=== PATIENT | male | born 1955 | race African-American/Black ===

== ENCOUNTER 2019-09-10 16:11 | Inpatient (IN) | payer OTHER ==
--- NOTE | 2019-09-10 16:45 | ER Document Report ---
ED Medical Screen (RME) - General Chief Complaint: Blood Pressure Problem Stated Complaint: BLOOD PRESSURE CONCERNS Time Seen by Provider: 09/10/19 16:35 Mode of Arrival: Ambulatory Information source: Patient Notes: 64-year-old male presented to ED for complaint of elevated blood pressure at home. He states he took his blood pressure with his machine at home and is said 235/? . He states it was so he was concerned and came to the emergency room. He stated the reason he took his blood pressure was because he had a headache on the left side of his head. He is not having any confusion dizziness change in orientation or change in mentation. When I checked his blood pressure in the emergency room his blood pressure is 210/100. He states he has not been taking his blood pressure medicine because it was only 10 mg of something but is not sure what. He states he figured that was enough that he really needed it. Patient states he usually drinks about 12 beers a day but he has not had any today. He states he sometimes gets medication at [facility] but they have not filled anything for him for over a year. I have greeted and performed a rapid initial assessment of this patient. A comprehensive ED assessment and evaluation of the patient, analysis of test results and completion of medical decision making process will be conducted by an additional ED providers. - Related Data Allergies/Adverse Reactions: No Known Allergies Allergy (Verified 09/10/19 16:35) Physical Exam - Vital signs Vitals: Temp Pulse Resp BP Pulse Ox 98.4 F 96 18 185/85 H 100 09/10/19 16:21 09/10/19 16:21 09/10/19 16:21 09/10/19 16:21 09/10/19 16:21 Course - Vital Signs Vital signs: Temp Pulse Resp BP Pulse Ox 98.4 F 96 18 185/85 H 100 09/10/19 16:21 09/10/19 16:21 09/10/19 16:21 09/10/19 16:21 09/10/19 16:21
[2019-09-10 17:18] LABS: ABSOLUTE EOSINOPHILS # (AUTO) 0.1 10^3/uL (0.0-0.6); ABSOLUTE MONOCYTES (AUTO) 0.5 10^3/uL (0.1-1.4); ABSOLUTE NEUT (AUTO) 3.3 10^3/uL (1.7-8.2); BASOPHILS % (AUTO) 0.5 % (0-2); HEMATOCRIT 41.3 % (37.9-51.0); HEMOGLOBIN 14.3 g/dL (13.5-17.0); LYMPHOCYTES % (AUTO) 21.1 % (13-45); MEAN CORPUSCULAR HEMOGLOBIN 31.5 pg (27.0-33.4); MEAN CORPUSCULAR HGB CONC 34.6 g/dL (32.0-36.0); MEAN CORPUSCULAR VOLUME 91 fl (80-97); MONOCYTES % (AUTO) 9.4 % (3-13); PLATELET COUNT 289 10^3/uL (150-450); RED BLOOD COUNT 4.54 10^6/uL (4.35-5.55); RED CELL DISTRIBUTION WIDTH 12.1 % (11.5-14.0); TOTAL CELLS COUNTED % (AUTO) 100 %; WHITE BLOOD COUNT 4.8 10^3/uL (4.0-10.5)
[2019-09-10 17:38] LABS: ALBUMIN 4.8 g/dL (3.5-5.0); ALCOHOL < 10 mg/dL (NONE DETECTED); ALKALINE PHOSPHATASE 72 U/L (38-126); ANION GAP 14 (5-19); ASPARTATE AMINO TRANSFERASE 30 U/L (17-59); BILIRUBIN,DIRECT 0.2 mg/dL (0.0-0.4); BILIRUBIN,TOTAL 0.7 mg/dL (0.2-1.3); BLOOD UREA NITROGEN 14 mg/dL (7-20); CALCIUM 10.2 mg/dL (8.4-10.2); CARBON DIOXIDE 23 mmol/L (22-30); CHLORIDE 97 mmol/L (98-107); GLUCOSE 137 mg/dL (75-110); POTASSIUM 3.9 mmol/L (3.6-5.0)
--- NOTE | 2019-09-10 17:46 | ER Document Report ---
ED General - General Mode of Arrival: Ambulatory TRAVEL OUTSIDE OF THE [place] IN LAST 30 DAYS: No - Related Data Home Medications: unknown blood pressure medication <SOFIA LANDIN - Last Filed: 09/10/19 19:20> <AMBAR MAN - Last Filed: 09/11/19 12:01> - General Chief Complaint: Blood Pressure Problem Stated Complaint: BLOOD PRESSURE CONCERNS Time Seen by Provider: 09/10/19 16:35 Notes: Very pleasant 64-year-old male with essential hypertension presents to the emergency department with chief complaint of elevated blood pressure. Patient states that he was at home this morning when he had a brief headache and decided to check his blood pressure. He initially checked it and the systolic read 235 but then realized it was improperly placed so he rechecked it and it was triple over triple. Patient was concerned and thus came to the ER. Patient denies any current headache, denies confusion, denies any chest pain or shortness of breath, denies nausea, denies diaphoresis, denies any anuria. (SOFIA LANDIN) - Related Data Allergies/Adverse Reactions: No Known Allergies Allergy (Verified 09/10/19 16:35) Past Medical History - General Information source: Patient - Social History Smoking Status: Never Smoker Chew tobacco use (# tins/day): No Frequency of alcohol use: Heavy Patient has suicidal ideation: No Patient has homicidal ideation: No <SOFIA LANDIN - Last Filed: 09/10/19 19:20> - Social History Lives with: Family Family History: None <AMBAR MAN - Last Filed: 09/11/19 12:01> Review of Systems - Review of Systems Constitutional: See HPI EENT: See HPI Cardiovascular: See HPI Respiratory: No symptoms reported Gastrointestinal: No symptoms reported Genitourinary: No symptoms reported Male Genitourinary: No symptoms reported Musculoskeletal: No symptoms reported Skin: No symptoms reported Hematologic/Lymphatic: No symptoms reported Neurological/Psychological: See HPI <SOFIA LANDIN - Last Filed: 09/10/19 19:20> Physical Exam <SOFIA LANDIN - Last Filed: 09/10/19 19:20> - Vital signs Vitals: BP 117/75 09/10/19 12:18 - Notes Notes: PHYSICAL EXAMINATION: Reviewed vital signs and charting by RN GENERAL: Alert, interacts well. No acute distress. HEAD: Normocephalic, atraumatic. EYES: Pupils equal and round. Extraocular movements intact. ENT: Oral mucosa moist, tongue midline. NECK: Full range of motion. Trachea midline. LUNGS: Clear to auscultation bilaterally, no wheezes, rales, or rhonchi. No respiratory distress. HEART: Regular rate and rhythm. No murmur ABDOMEN: soft, non-tender. No distention. Bowel sounds present EXTREMITIES: Moves all 4 extremities spontaneously. No edema, No cyanosis. NEURO: A &O X 3, normal speech, normal gait, PERRL, EOMI, SILT, follows comma nds in all 4 extremities, no gross abnormalities of cranial nerves, no focal neuro deficits, no pronator drift, [id number] testing normal, rapid alternating hand movements normal, [id number] normal, stranding machine operator helper strength 5/5 bilateral, 5/5 strength in both proximal and distal upper and lower extremities PSYCH: Normal affect, normal mood. SKIN: Warm, dry, normal turgor. No rashes or lesions noted. (SOFIA LANDIN) Course - Laboratory Result Diagrams: 09/10/19 17:10 09/10/19 17:10 <SOFIA LANDIN - Last Filed: 09/10/19 19:20> - Laboratory Result Diagrams: 09/11/19 03:54 09/11/19 06:16 - Consults dr tilley Time consulted: 21:06 Consulted provider: other <AMBAR MAN - Last Filed: 09/11/19 12:01> - Re-evaluation Re-evalutation: 09/10/19 17:47 Very well-appearing in no acute distress. I did an EKG and troponin to labs ordered in triage. Serum alcohol was ordered and is pending. Patient denies any symptoms at this time. Normal neurologic exam. There is no evidence of any hypertensive emergency pending EKG and troponin. Patient is urinating. 09/10/19 18:25 Troponin was 0.020, indeterminate. Briefly discussed with attending physician and recommendation is to get a delta troponin to ensure that it is not uptrending. Serum alcohol less than 10. 09/10/19 19:21 Patient signed out to Pema Man NP. (SOFIA LANDIN) 09/10/19 19:00 Received report from Sofia DRAKE. Patient resting quietly with his at the bedside. He denies headache. Denies chest pain. Reports he has a history of high blood pressure but he was not taking his medications as prescribed. He reports he really did not think he needed them as prescribed. Patient was instructed that we are waiting for a second troponin. We will repeat second EKG also. 09/10/19 21:06 Second troponin [address] Alvarado who advises baby aspirin and admission. Contacted Dr. Tilley who requested to give him clonidine 0.2 mg if heart rate remains over 90 and Norvasc 10 mg reassess in 1 hour. patient and updated on plan of care. He requested Dr. Alvarado to assess patient. Patient denies chest pain. Denies headache. Patient reports he feels fine. 09/10/19 23:04 Patient received aspirin and Norvasc. He did not receive the clonidine because a heart rate was under 90. Patient reassessed blood pressure is decreased. He still denies chest pain. Denies shortness of breath and reports he feels fine no headache. Consulted Dr. Alvarado to come in and assess the patient per Dr Reyes request before I called Dr. Tilley back. Dr. Alvarado did go and assess patient and still advises admission. I contacted Dr. Tilley. He reports that I should contact Dr. Pavon. Dr. Huitron was contacted. He reviewed patient's chart, EKG and labs. He reports the patient does not need admission he can be sent home on metoprolol XL 25 mg in addition to his amlodipine. He also reports patient should follow-up with his primary care provider. I instructed Dr. alvarado about this. He contacted Dr. Pavon. Dr. Alvarado has taken over care of the patient. Patient is aware of Dr. Alvarado assuming care. (AMBAR MAN) - Vital Signs Vital signs: Temp Pulse Resp BP Pulse Ox 99.1 F 87 17 141/95 H 100 09/11/19 11:03 09/11/19 11:03 09/11/19 11:03 09/11/19 11:03 09/11/19 11:03 - Laboratory Laboratory results interpreted by me: 09/10/19 09/10/19 17:10 18:12 Sodium 133.6 L Chloride 97 L Glucose 137 H Urine Ketones TRACE H Discharge <SOFIA LANDIN - Last Filed: 09/10/19 19:20> <AMBAR MAN - Last Filed: 09/11/19 12:01> - Discharge Clinical Impression: Hypertensive urgency Condition: Fair Disposition: ADMITTED OBSERVATION
[2019-09-10 18:33] LABS: APPEARANCE,URINE CLEAR; BILIRUBIN,URINE NEGATIVE (NEGATIVE); COLOR,URINE YELLOW; GLUCOSE, URINE NEGATIVE (NEGATIVE); KETONES,URINE TRACE mg/dL (NEGATIVE); PROTEIN,URINE NEGATIVE (NEGATIVE); URINE SPECIFIC GRAVITY 1.009; UROBILINOGEN,URINE NEGATIVE mg/dL (<2.0)
[2019-09-10] MEDS ORDERED: CLONIDINE HCL 0.2 MG TABLET PO ONE (21:07)
[2019-09-10] MEDS ORDERED: AMLODIPINE BESYLATE 10 MG TABLET PO ONE (21:07)
[2019-09-10] MEDS ORDERED: ASPIRIN 81 MG TABLET, CHEWABLE PO ONE (21:14)
--- NOTE | 2019-09-10 23:05 | EKG REPORT ---
SEVERITY:- ABNORMAL ECG - SINUS RHYTHM NONSPECIFIC REPOL ABNORMALITY, DIFFUSE LEADS : Confirmed by: Austyn Iqbal MD 10-Sep-2019 23:05:04
--- NOTE | 2019-09-10 23:07 | EKG REPORT ---
SEVERITY:- ABNORMAL ECG - SINUS RHYTHM VENTRICULAR PREMATURE COMPLEX LVH WITH SECONDARY REPOLARIZATION ABNORMALITY BORDERLINE PROLONGED QT INTERVAL : Confirmed by: Austyn Iqbal MD 10-Sep-2019 23:06:23
[2019-09-11] MEDS ORDERED: NICARDIPINE HCL RTU, ISO-OS 20 MG/200 ML RTUINJ IV PRN ×2 (00:16→02:49)
--- NOTE | 2019-09-11 00:24 | ER Document Report ---
Doctor's Note Notes: 09/11/19 00:22 Patient's blood pressure has gone back up to 204/119. This MD started a Cardene drip at 2.5/h with a goal to reduce that M AP by 20 to 25% over the first hour. This MD discussed case with the loading machine tool setter who accepted the patient for admission.
[2019-09-11] MEDS ORDERED: ACETAMINOPHEN 325 MG TABLET PO PRN (00:33)
[2019-09-11] MEDS ORDERED: HYDRALAZINE HCL INJ/PF 20 MG/1 ML SDV IV PRN (00:45)
[2019-09-11] MEDS ORDERED: LABETALOL HCL INJ 20 MG/4 ML DISP.SYRIN IV PRN (00:46)
[2019-09-11] MEDS ORDERED: LORAZEPAM INJ 2 MG/1 ML VIAL IV PRN (00:49)
--- NOTE | 2019-09-11 01:21 | CRITICAL CARE ADMISSION REPORT ---
HPI Date:: 09/11/19 Time:: 01:09 Reason for ICU Reason:: Hypertensive urgency HPI: Pt is a 64 yo man with HTN and alcohol abuse who presented to the ED after having a ROBLES at home and discovering that his SBP was 235. He reports that he stopped taking his norvasc 5 months ago b/c he didn't feel like he needed it. He also reports drinking 12 beers daily. In the ED he was given norvasc and clonidine. They were unable to lower his BP with oral agents and he was started on a Cardene drip. He denies any fever, chills, N/V, CP, SOA, difficulty walking, or problems with his bladder/bowels. - Diagnosis/Plan (1) Hypertensive urgency Is this a current diagnosis for this admission?: Yes (2) Alcohol abuse Is this a current diagnosis for this admission?: Yes (3) Nonadherence to medication Is this a current diagnosis for this admission?: Yes Past Medical History Cardiac Medical History: Reports: Hypertension Social/Family History - Social History Smoking Status: Never Smoker Frequency of Alcohol Use: Heavy - reports drinking 12 beers daily - Medication/Allergies Allergies/Adverse Reactions: No Known Allergies Allergy (Verified 09/10/19 16:35) Review of Systems Review of Systems: per HPI. Physical Exam Vital Signs: Temp Pulse Resp BP Pulse Ox 98.4 F 96 20 178/88 H 96 09/10/19 16:21 09/10/19 16:21 09/11/19 01:00 09/11/19 01:01 09/11/19 01:00 Intake & Output 09/09/19 09/10/19 09/11/19 06:59 06:59 06:59 Weight 109.1 kg Weight/Height Weight 109.1 kg Height 6 ft 2 in General appearance: PRESENT: no acute distress, well-developed, well-nourished Neck exam: PRESENT: other - no JVD Respiratory exam: PRESENT: clear to auscultation komal, unlabored Cardiovascular exam: PRESENT: RRR, other - no mrg GI/Abdominal exam: PRESENT: soft, other - non-tender, non-distended Extremities exam: PRESENT: other - no edema Musculoskeletal exam: PRESENT: normal inspection Neurological exam: PRESENT: alert, awake, CN II-XII grossly intact, other - non- focal exam. normal strength and sensation Psychiatric exam: PRESENT: appropriate affect Laboratory/Radiographs Laboratory Results: 09/10/19 17:10 09/10/19 17:10 09/10/19 09/10/19 09/10/19 17:10 17:10 18:12 WBC 4.8 RBC 4.54 Hgb 14.3 Hct 41.3 MCV 91 MCH 31.5 MCHC 34.6 RDW 12.1 Plt Count 289 Seg Neutrophils % 68.0 Sodium 133.6 L Potassium 3.9 Chloride 97 L Carbon Dioxide 23 Anion Gap 14 BUN 14 Creatinine 1.02 Est GFR ( Amer) > 60 Glucose 137 H Calcium 10.2 Total Bilirubin 0.7 AST 30 Alkaline Phosphatase 72 Total Protein 8.0 Albumin 4.8 Lipase 83.2 Urine Color YELLOW Urine Appearance CLEAR Urine pH 6.0 Ur Specific [place] 1.009 Urine Protein NEGATIVE Urine Glucose (UA) NEGATIVE Urine Ketones TRACE H Urine Blood NEGATIVE Urine RBC (Auto) 0 09/10/19 09/10/19 09/10/19 17:10 20:10 23:09 Troponin I 0.020 0.030 0.032 Critical Time Critical Time (minutes): 40 -: The care of a critically ill patient is dynamic. This note represents a static moment in the admission process. orders and treatments may be given simu lataneously and urgentl, and time is not security systems sales representative of the treatment process. This patient requires Critical Care secondary to life threating organ or limb dysfunction. Without the need for Critical Care services, the patient is at risk for increasid mortality and morbidity. Provider Note Provider Note: Assessment: 64 yo man with hypertenisve urgency due to non-compliance with medication regimen, alcohol abuse. Plan: 1. Respiratory: stable on room air 2. CV: hypertensive urgency. Continue cardene. Resume home norvac 10mg daily. Toprol XL [address] Huitron's recs per the ED note. EKG and troponins, reviewed. Echo ordered. Prn labetalol and hydralazine. 3. Psych/Social: ETOH abuse. Pt reports drinking 12 beers daily. CIWA scale. prn ativan. MVI/folic acid/thiamine. UDS. 4. Neuro: headache due to uncontrolled HTN. Will check head CT 5. Diet: cardiac diet 6. Prophylaxis: scds, lovenox 7. Pt counseled on the importance of medication adherence, heart healthy diet, and alcohol cessation. Critical care time= 40 min, excluding procedures
[2019-09-11] MEDS ORDERED: INFLUENZA QUAD (6MOS+) 2019-20 VAC 0.5 ML SYR IM ONE (02:10)
--- NOTE | 2019-09-11 04:05 | RADIOLOGY REPORT (SQ) ---
CT head without contrast on 09/11/2019 at 1:23 AM CLINICAL INDICATION: Headache, uncontrolled hypertension TECHNIQUE: Multiple axial images are obtained throughout the head without the administration of contrast. This exam was performed according to our departmental dose-optimization program, which includes automated exposure control, adjustment of the mA and/or kV according to patient size and/or use of iterative reconstruction technique. Total DLP is 1070.38 mGy*cm. COMPARISON: None FINDINGS: There is low-density in the periventricular white matter consistent with chronic small vessel ischemic changes. There is no hydrocephalus. There is no CT evidence of acute infarct. There is no hemorrhage. There are no abnormal extra-axial fluid collections. There is no mass, mass effect or midline shift. No bony abnormality is noted. IMPRESSION: Chronic small vessel ischemic changes with no acute intracranial abnormality.
[2019-09-11 04:57] LABS: HEMATOCRIT 40.5 % (37.9-51.0); HEMOGLOBIN 14.2 g/dL (13.5-17.0); MEAN CORPUSCULAR HEMOGLOBIN 31.6 pg (27.0-33.4); MEAN CORPUSCULAR HGB CONC 35.1 g/dL (32.0-36.0); MEAN CORPUSCULAR VOLUME 90 fl (80-97); PLATELET COUNT 265 10^3/uL (150-450); WHITE BLOOD COUNT 5.2 10^3/uL (4.0-10.5)
[2019-09-11 05:09] LABS: URINE AMPHETAMINES SCREEN NEGATIVE; URINE BARBITURATES SCREEN NEGATIVE; URINE BENZODIAZEPINES SCREEN NEGATIVE; URINE COCAINE SCREEN NEGATIVE; URINE MARIJUANA (THC) SCREEN NEGATIVE; URINE METHADONE SCREEN NEGATIVE; URINE PHENCYCLIDINE SCREEN NEGATIVE
[2019-09-11 06:39] LABS: ANION GAP 10 (5-19); BLOOD UREA NITROGEN 10 mg/dL (7-20); CALCIUM 9.6 mg/dL (8.4-10.2); CARBON DIOXIDE 23 mmol/L (22-30); CHLORIDE 101 mmol/L (98-107); GLUCOSE 97 mg/dL (75-110); POTASSIUM 3.9 mmol/L (3.6-5.0)
--- NOTE | 2019-09-11 08:46 | PDOC CRITICAL CARE PROG REPORT ---
General Date:: 09/11/19 ICU Day:: 1 Hospital Day:: 1 Events in the past 12 to 24 Hours:: Cardene for BP control now off. Review of systems relevant to events:: No H/A steady on feet. Reason for ICU Addmission:: Hypertensive urgency - Medications: Medications reviewed and adjusted accordingly: Yes Vasopressors:: No Sedation:: No Physical Exam Vital Signs: Temp Pulse Resp BP Pulse Ox 98.3 F 103 H 16 125/82 98 09/11/19 06:00 09/11/19 01:26 09/11/19 06:16 09/11/19 06:16 09/11/19 06:16 Intake & Output 09/10/19 09/11/19 09/12/19 06:59 06:59 06:59 Intake Total 60 240 Balance 60 240 Weight 112.6 kg Weight/Height Weight 112.6 kg Height 6 ft 3 in General appearance: PRESENT: no acute distress, hard of hearing, well-developed, well-nourished Head exam: PRESENT: atraumatic, normocephalic Eye exam: PRESENT: conjunctiva pink, EOMI, PERRLA. ABSENT: scleral icterus Ear exam: PRESENT: normal external ear exam Mouth exam: PRESENT: moist, tongue midline Neck exam: PRESENT: full ROM Respiratory exam: PRESENT: clear to auscultation komal. ABSENT: rales, rhonchi, wheezes Cardiovascular exam: PRESENT: RRR, tachycardia. ABSENT: diastolic murmur, rubs, systolic murmur GI/Abdominal exam: PRESENT: normal bowel sounds, soft. ABSENT: distended, guarding, mass, organolmegaly, rebound, tenderness Rectal exam: PRESENT: deferred Extremities exam: PRESENT: full ROM Musculoskeletal exam: PRESENT: normal inspection Neurological exam: PRESENT: alert, awake, oriented to person, oriented to place, oriented to time, oriented to situation, CN II-XII grossly intact. ABSENT: motor sensory deficit Skin exam: PRESENT: dry, intact, warm. ABSENT: cyanosis, rash Laboratory/Radiographs Laboratory Results: 09/11/19 03:54 09/11/19 06:16 09/10/19 09/10/19 09/10/19 17:10 17:10 18:12 WBC 4.8 RBC 4.54 Hgb 14.3 Hct 41.3 MCV 91 MCH 31.5 MCHC 34.6 RDW 12.1 Plt Count 289 Seg Neutrophils % 68.0 Sodium 133.6 L Potassium 3.9 Chloride 97 L Carbon Dioxide 23 Anion Gap 14 BUN 14 Creatinine 1.02 Est GFR ( Amer) > 60 Est GFR (Non-Af Amer) Glucose 137 H Calcium 10.2 Total Bilirubin 0.7 AST 30 Alkaline Phosphatase 72 Total Protein 8.0 Albumin 4.8 Lipase 83.2 Urine Color YELLOW Urine Appearance CLEAR Urine pH 6.0 Ur Specific [place] 1.009 Urine Protein NEGATIVE Urine Glucose (UA) NEGATIVE Urine Ketones TRACE H Urine Blood NEGATIVE Urine RBC (Auto) 0 09/11/19 09/11/19 09/11/19 03:54 03:54 06:16 WBC 5.2 RBC 4.50 Hgb 14.2 Hct 40.5 MCV 90 MCH 31.6 MCHC 35.1 RDW 12.0 Plt Count 265 Seg Neutrophils % Sodium Cancelled 134.2 L Potassium Cancelled 3.9 Chloride Cancelled 101 Carbon Dioxide Cancelled 23 Anion Gap Cancelled 10 BUN Cancelled 10 Creatinine Cancelled 0.93 Est GFR ( Amer) Cancelled > 60 Est GFR (Non-Af Amer) Cancelled Glucose Cancelled 97 Calcium Cancelled 9.6 Total Bilirubin AST Alkaline Phosphatase Total Protein Albumin Lipase Urine Color Urine Appearance Urine pH Ur Specific [place] Urine Protein Urine Glucose (UA) Urine Ketones Urine Blood Urine RBC (Auto) 09/10/19 09/10/19 09/10/19 17:10 20:10 23:09 Troponin I 0.020 0.030 0.032 Impressions: Head CT 09/11/19 00:00 IMPRESSION: Chronic small vessel ischemic changes with no acute intracranial abnormality. All labs, radiographs, diagnostic studies and EKGs were personally reviewed: Yes In addition, reports of radiographic and diagnostic studies were read: Yes Assessment and Plan - Diagnosis (1) Alcohol abuse Is this a current diagnosis for this admission?: Yes Plan: Said to be a problem. No sign of withdrawal syndrome. Slight tachycardia not accompanied by other symptoms. (2) Hypertensive urgency Is this a current diagnosis for this admission?: Yes Plan: Off Cardene but still needs time with PO antihypertensives. Certainly able to downgrade (3) Nonadherence to medication Is this a current diagnosis for this admission?: Yes Plan: Likely a combination of personal preference and possibly alcohol. May need a scheduled appointment at discharge. Plan Summary: Downgrade and place on PO medication and discharge in the next 24 hours. Critical Time Critical Time (minutes): 35 Level of Care: TELE Anticipated discharge: Home Within: within 24 hours -: 1. The care of a critical patient is a dynamic process. This note is a rep resentative synopsis but static in nature. The timeframe for treatments given in order is not necessary the actual time these treatments may have been done. 2. This patient requires critical care secondary to ongoing requirements for therapy not offered or safe outside the critical care environment. Transfer to a lower level of care with altered life or limb morbidity and mortality. 3. Multidisciplinary rounds completed. 4. ABCDE bundle addressed.
[2019-09-11] MEDS ORDERED: MULTIVITAMIN TABLET PO SCH (10:00)
[2019-09-11] MEDS ORDERED: METOPROLOL TARTRATE 25 MG TABLET PO SCH (10:00)
[2019-09-11] MEDS ORDERED: FOLIC ACID 1 MG TABLET PO SCH (10:00)
[2019-09-11] MEDS ORDERED: ENOXAPARIN SODIUM INJ 40 MG/0.4 ML DISP.SYRIN SUBCUT SCH (10:00)
[2019-09-11] MEDS ORDERED: THIAMINE HCL 100 MG TABLET PO SCH (10:00)
[2019-09-11] MEDS ORDERED: METOPROLOL SUCCINATE 25 MG TAB.SR.24H PO SCH (10:00)
[2019-09-11] MEDS ORDERED: AMLODIPINE BESYLATE 10 MG TABLET PO SCH (10:00)
[2019-09-11] MEDS ORDERED: METOPROLOL SUCCINATE 50 MG TAB.SR.24H PO SCH (10:30)
--- NOTE | 2019-09-11 10:44 | PDOC DISCHARGE SUMMARY ---
Impression - Admit/DC Date/PCP Admission Date/Primary Care Provider: 09/11/19 00:51 [facility] Discharge Date: 09/11/19 - Discharge Diagnosis (1) Alcohol abuse Is this a current diagnosis for this admission?: Yes (2) Hypertensive urgency Is this a current diagnosis for this admission?: Yes (3) Nonadherence to medication Is this a current diagnosis for this admission?: Yes - Additional Information Resuscitation Status: Full Code Discharge Diet: Regular Discharge Activity: Activity As Tolerated Referrals: [facility] [Primary Care Provider] - Follow up as needed KAUSHIK VILCHIS MD [ACTIVE STAFF] - Prescriptions: Metoprolol Succinate [Toprol Xl 50 mg Tab.sr] 50 mg PO DAILY 30 Days #30 tab.sr.24h Home Medications: Amlodipine Besylate [Norvasc 10 mg Tablet] 10 mg PO DAILY tablet 09/11/19 Metoprolol Succinate [Toprol Xl 50 mg Tab.sr] 50 mg PO DAILY 30 Days #30 tab.sr.24h 09/11/19 History of Present Illiness History of Present Illness: DEMETRIO VASQUEZ is a 64 year old male. Here for hypertensive urgency. Unresponsive to PO meds. Placed on Cardene which brought BP down to 130. Drip shut off and patient now on amlodipine and toprol XL. No H/A, CP palpitations. No diziness Hospital Course Hospital Course: His course has been uneventful. No signs of alcohol WD. On PO medications. Patient adamently wants to go home. Physical Exam Vital Signs: Temp Pulse Resp BP Pulse Ox 99.1 F 87 18 141/95 H 99 09/11/19 08:00 09/11/19 08:00 09/11/19 08:00 09/11/19 08:00 09/11/19 08:00 Intake & Output 09/10/19 09/11/19 09/12/19 06:59 06:59 06:59 Intake Total 60 240 Balance 60 240 Weight 112.6 kg General appearance: PRESENT: no acute distress, well-developed, well-nourished Head exam: PRESENT: atraumatic, normocephalic Eye exam: PRESENT: conjunctiva pink, EOMI, PERRLA. ABSENT: scleral icterus Ear exam: PRESENT: normal external ear exam Mouth exam: PRESENT: dry mucosa Neck exam: ABSENT: carotid bruit, JVD, lymphadenopathy, thyromegaly Respiratory exam: PRESENT: clear to auscultation komal. ABSENT: rales, rhonchi, wheezes Cardiovascular exam: PRESENT: RRR. ABSENT: diastolic murmur, rubs, systolic murmur Pulses: PRESENT: normal dorsalis pedis pul Vascular exam: PRESENT: normal capillary refill GI/Abdominal exam: PRESENT: normal bowel sounds, soft. ABSENT: distended, guarding, mass, organolmegaly, rebound, tenderness Rectal exam: PRESENT: deferred Extremities exam: PRESENT: full ROM. ABSENT: calf tenderness, clubbing, pedal edema Neurological exam: PRESENT: alert, awake, oriented to person, oriented to place, oriented to time, oriented to situation, CN II-XII grossly intact. ABSENT: motor sensory deficit Skin exam: PRESENT: dry, intact, warm. ABSENT: cyanosis, rash Results Laboratory Results: WBC 5.2 10^3/uL (4.0-10.5) 09/11/19 03:54 RBC 4.50 10^6/uL (4.35-5.55) 09/11/19 03:54 Hgb 14.2 g/dL (13.5-17.0) 09/11/19 03:54 Hct 40.5 % (37.9-51.0) 09/11/19 03:54 MCV 90 fl (80-97) 09/11/19 03:54 MCH 31.6 pg (27.0-33.4) 09/11/19 03:54 MCHC 35.1 g/dL (32.0-36.0) 09/11/19 03:54 RDW 12.0 % (11.5-14.0) 09/11/19 03:54 Plt Count 265 10^3/uL (150-450) 09/11/19 03:54 Lymph % (Auto) 21.1 % (13-45) 09/10/19 17:10 [place] % (Auto) 9.4 % (3-13) 09/10/19 17:10 Eos % (Auto) 1.0 % (0-6) 09/10/19 17:10 Baso % (Auto) 0.5 % (0-2) 09/10/19 17:10 Absolute Neuts (auto) 3.3 10^3/uL (1.7-8.2) 09/10/19 17:10 Absolute Lymphs (auto) 1.0 10^3/uL (0.5-4.7) 09/10/19 17:10 Absolute Monos (auto) 0.5 10^3/uL (0.1-1.4) 09/10/19 17:10 Absolute Eos (auto) 0.1 10^3/uL (0.0-0.6) 09/10/19 17:10 Absolute Basos (auto) 0.0 10^3/uL (0.0-0.2) 09/10/19 17:10 Seg Neutrophils % 68.0 % (42-78) 09/10/19 17:10 Sodium 134.2 mmol/L (137-145) L 09/11/19 06:16 Potassium 3.9 mmol/L (3.6-5.0) 09/11/19 06:16 Chloride 101 mmol/L (98-107) 09/11/19 06:16 Carbon Dioxide 23 mmol/L (22-30) 09/11/19 06:16 Anion Gap 10 (5-19) 09/11/19 06:16 BUN 10 mg/dL (7-20) 09/11/19 06:16 Creatinine 0.93 mg/dL (0.52-1.25) 09/11/19 06:16 Est GFR ( Amer) > 60 (>60) 09/11/19 06:16 Est GFR (Non-Af Amer) Cancelled 09/11/19 03:54 Est GFR (MDRD) Non-Af > 60 (>60) 09/11/19 06:16 Glucose 97 mg/dL (75-110) 09/11/19 06:16 Calcium 9.6 mg/dL (8.4-10.2) 09/11/19 06:16 Total Bilirubin 0.7 mg/dL (0.2-1.3) 09/10/19 17:10 Direct Bilirubin 0.2 mg/dL (0.0-0.4) 09/10/19 17:10 Neonat Total Bilirubin Not Reportable 09/10/19 17:10 Neonat Direct Bilirubin Not Reportable 09/10/19 17:10 Neonat Indirect Bili Not Reportable 09/10/19 17:10 AST 30 U/L (17-59) 09/10/19 17:10 ALT 33 U/L (<50) 09/10/19 17:10 Alkaline Phosphatase 72 U/L (38-126) 09/10/19 17:10 Troponin I 0.032 ng/mL 09/10/19 23:09 Total Protein 8.0 g/dL (6.3-8.2) 09/10/19 17:10 Albumin 4.8 g/dL (3.5-5.0) 09/10/19 17:10 Lipase 83.2 U/L (23-300) 09/10/19 17:10 EGFR Cancelled 09/11/19 03:54 Urine Color YELLOW 09/10/19 18:12 Urine Appearance CLEAR 09/10/19 18:12 Urine pH 6.0 (5.0-9.0) 09/10/19 18:12 Ur Specific [place] 1.009 09/10/19 18:12 Urine Protein NEGATIVE mg/dL (NEGATIVE) 09/10/19 18:12 Urine Glucose (UA) NEGATIVE mg/dL (NEGATIVE) 09/10/19 18:12 Urine Ketones TRACE mg/dL (NEGATIVE) H 09/10/19 18:12 Urine Blood NEGATIVE (NEGATIVE) 09/10/19 18:12 Urine Nitrite (Reflex) NEGATIVE (NEGATIVE) 09/10/19 18:12 Urine Bilirubin NEGATIVE (NEGATIVE) 09/10/19 18:12 Urine Urobilinogen NEGATIVE mg/dL (<2.0) 09/10/19 18:12 Leukocyte Esterase Rfl NEGATIVE (NEGATIVE) 09/10/19 18:12 Urine RBC (Auto) 0 /HPF 09/10/19 18:12 Urine WBC (Reflex) < 1 /HPF 09/10/19 18:12 Urine Mucus (Auto) RARE /LPF 09/10/19 18:12 Urine Ascorbic Acid NEGATIVE (NEGATIVE) 09/10/19 18:12 Urine Opiates Screen NEGATIVE 09/10/19 18:12 Urine Methadone Screen NEGATIVE 09/10/19 18:12 Ur Barbiturates Screen NEGATIVE 09/10/19 18:12 Ur Phencyclidine Scrn NEGATIVE 09/10/19 18:12 Ur Amphetamines Screen NEGATIVE 09/10/19 18:12 U Benzodiazepines Scrn NEGATIVE 09/10/19 18:12 Urine Cocaine Screen NEGATIVE 09/10/19 18:12 U Marijuana (THC) Screen NEGATIVE 09/10/19 18:12 Serum Alcohol < 10 mg/dL (NONE DETECTED) 09/10/19 17:10 09/10/19 09/10/19 09/10/19 17:10 20:10 23:09 Troponin I 0.020 0.030 0.032 EKG Comments: SR. Does get tachycardic with activity. Impressions: Head CT 09/11/19 00:00 IMPRESSION: Chronic small vessel ischemic changes with no acute intracranial abnormality. Plan Health Concerns: Alcohol intake and compliance with regimen at home. Plan of Treatment: Amlodipine as before. Add toprol XL 50mg/day Goals: Better BP control Critical Time: 35 Level of Care: ICU Stroke Is this a Stroke Patient?: No Acute Heart Failure - Is this a Heart Failure Patient?: No
[2019-09-11 11:08] VITALS: BP 141/95
--- NOTE | 2019-09-11 22:33 | XCELERA REPORT ---
[address] [address] Transthoracic Echocardiogram Report Name: DEMETRIO VASQUEZ Age: 64 yrs Gender: Male : 1955 Patient Status: Inpatient Patient Location: ICU^610^A Study Date: 09/11/2019 09:54 AM Weight: 240 lb Procedure: A two-dimensional transthoracic echocardiogram with color flow and Doppler was performed. Study Quality: Good. Reason For Study: hypertension History: hypertension. Ordering Physician: ALYCIA REDDY Performed By: Summer Huggins Interpretation Summary Study Quality: Good. The left ventricle is normal in size. There is normal left ventricular wall thickness. LV EF is 55% to 60% Left ventricular systolic function is normal. Doppler measurements suggest normal left ventricular diastolic function The left ventricular wall motion is normal. There is no thrombus. No ASD ,VSD , or PFO seen. The right ventricle is normal in size and function. The left atrial size is normal. There is no evidence of mitral valve prolapse. There is no mitral valve stenosis. There is no vegetation seen on the mitral valve. There is a trace amount of mitral regurgitation There is no aortic valvular vegetation. There is aortic sclerosis without aortic stenosis. There is no LVOT obstruction. No aortic regurgitation is present. There is no tricuspid stenosis. There is a trace amount of tricuspid regurgitation Tricuspid regurgitation jet envelope not well defined to measure RV systolic pressure accurately. There is no pulmonic valvular stenosis. There is no pulmonic valvular regurgitation. The aortic root is normal size. The inferior vena cava appeared normal and decreased > 50% with respiration (RAP 5-10 mmHg) There is no pericardial effusion. MMode/2D Measurements & Calculations RVDd: 3.1 cm LVIDd: 6.1 cm FS: 29.2 % Ao root diam: 3.0 cm IVSd: 0.86 cm LVIDs: 4.3 cm EDV(Teich): 187.3 ml LVPWd: 1.1 cm ESV(Teich): 84.0 ml Ao root area: 7.2 cm2 EF(Teich): 55.1 % Doppler Measurements & Calculations MV E max carson: MV dec slope: Ao V2 max: LV V1 max P.1 cm/sec 121.1 cm/sec 3.0 mmHg MV A max carson: 586.7 cm/sec2 Ao max PG: LV V1 max: 37.0 cm/sec MV dec time: 0.10 sec5.9 mmHg 87.1 cm/sec MV E/A: 1.6 PA V2 max: 87.5 cm/sec PA max P.1 mmHg Left Ventricle The left ventricle is normal in size. There is normal left ventricular wall thickness. LV EF is 55% to 60%. Left ventricular systolic function is normal. Doppler measurements suggest normal left ventricular diastolic function. The left ventricular wall motion is normal. There is no thrombus. No ASD ,VSD , or PFO seen. Right Ventricle The right ventricle is normal in size and function. Atria The right atrium is normal. The left atrial size is normal. Mitral Valve There is no evidence of mitral valve prolapse. There is no vegetation seen on the mitral valve. There is no mitral valve stenosis. There is a trace amount of mitral regurgitation. Aortic Valve There is no aortic valvular vegetation. There is aortic sclerosis without aortic stenosis. There is no LVOT obstruction. No aortic regurgitation is present. Tricuspid Valve There is no tricuspid stenosis. There is a trace amount of tricuspid regurgitation. Tricuspid regurgitation jet envelope not well defined to measure RV systolic pressure accurately. Pulmonic Valve There is no pulmonic valvular stenosis. There is no pulmonic valvular regurgitation. Great Vessels The aortic root is normal size. The inferior vena cava appeared normal and decreased > 50% with respiration (RAP 5-10 mmHg). Effusions There is no pericardial effusion. : ALYCIA REDDY Lakshmi
== END 2019-09-11 11:50 | disposition home or self-care (01) | DRG 305 ==
LOC: ER 16:11 → EH 09-11 00:51 → ICU 09-11 01:30
PROVIDERS: ADMIT Internal Medicine; ATTEND Internal Medicine
DX: I16.0 Hypertensive urgency (principal); F10.10 Alcohol abuse, uncomplicated; H91.90 Unspecified hearing loss, unspecified ear; I10 Essential (primary) hypertension; Z91.14 Patient's other noncompliance with medication regimen
CPT/HCPCS: 36415; 70450; 80048; 80053; 80307; 81001; 83690; 84484; 85025; 85027; 93005; 93010; 93306; 96374; 99285; J2060; J3490